=== PATIENT | female | born 1990 | race Hispanic/Latino ===

== ENCOUNTER 2016-12-09 23:55 | Emergency (ER) | payer MEDICAID ==
[2016-12-09 23:55] VITALS: BMI 46.2
[2016-12-10 00:20] VITALS: BP 126/42; PULSE 62; RESP 17; TEMP 98; O2SAT 98
[2016-12-10] MEDS ORDERED: Albuterol-Ipratrop 3 mg / 0.5 (3 ml) UD IH STA ×2 (00:33→00:34)
--- NOTE | 2016-12-10 00:36 | ED PDOC ---
HPI: CCC, URI, Sore Throat Time Seen by Provider: 12/10/16 00:25 Chief Complaint (Nursing): Flu-like Symptoms Chief Complaint (Provider): cough, congestion History Per: Patient History/Exam Limitations: no limitations Onset/Duration Of Symptoms: Days (2) Current Symptoms Are (Timing): Still Present Location Of Pain: Ear(s), Throat, Headache Associated Symptoms: Chills, Sore Throat, Cough, Sputum, Nasal Congestion Additional History Per: Patient Additional Complaint(s): 26 y/o female presents with congestion x 2 days. Associated productive cough ( green sputum), nasal congestion, dry throat, headache, ear fullness. Denies fever, nausea/vomiting, chest pain, shortness of breath, palpitations, abdominal pain, changes in bowel movements, recent travel, sick contacts. Past Medical History Reviewed: Historical Data, Nursing Documentation, Vital Signs Vital Signs: Last Vital Signs Temp 98.0 F 12/10/16 00:14 Pulse 62 12/10/16 00:14 Resp 17 12/10/16 00:14 BP 126/42 L 12/10/16 00:14 Pulse Ox 98 12/10/16 01:12 - Medical History PMH: Bronchitis, Gall Bladder Disease - Surgical History Surgical History: - Family History Family History: States: Unknown Family Hx - Social History Current smoker - smoking cessation education provided: Yes Alcohol: Occasional Drugs: Denies - Immunization History Hx Tetanus Toxoid Vaccination: No Hx Influenza Vaccination: No Hx Pneumococcal Vaccination: No - Home Medications Home Medications: Ambulatory Orders Medication Instructions Recorded Methadone HCl [Methadone HCl] 90 mg PO DAILY 09/28/14 Albuterol HFA [Ventolin HFA 90 1 - 2 puff IH Q4 PRN #1 inh 12/10/16 mcg/actuation (8 g)] Azithromycin [Zithromax] 250 mg PO DAILY #1 packet 12/10/16 Fluticasone Nasal [Flonase] 1 actuation NS BID #1 bottle 12/10/16 Prednisone 50 mg PO DAILY #4 tablet 12/10/16 - Allergies Allergies/Adverse Reactions: Allergies Allergy/AdvReac Type Severity Reaction Status Date / Time No Known Allergies Allergy Verified 01/09/15 09:07 Review of Systems ROS Statement: Except As Marked, All Systems Reviewed And Found Negative ENT: Positive for: Nose Congestion Respiratory: Positive for: Cough, Sputum Physical Exam - Reviewed Nursing Documentation Reviewed: Yes Vital Signs Reviewed: Yes - Physical Exam Appears: Positive for: Well, Non-toxic, No Acute Distress Head Exam: Positive for: ATRAUMATIC, NORMAL INSPECTION, NORMOCEPHALIC Skin: Positive for: Normal Color Eye Exam: Positive for: Normal appearance ENT: Positive for: Nasal Congestion Neck: Positive for: Normal, Painless ROM Cardiovascular/Chest: Positive for: Regular Rate, Rhythm Respiratory: Positive for: Wheezing (expiratory) Gastrointestinal/Abdominal: Positive for: Normal Exam Back: Positive for: Normal Inspection Extremity: Positive for: Normal ROM Neurologic/Psych: Positive for: Alert, Oriented - ECG O2 Sat by Pulse Oximetry: 98 - Radiology X-Ray: Viewed By Nd X-Ray Interpretation: No Acute Disease - Progress ED Course And Treament: chest xray, duonebs, prednisone PO Patient educated on findings, discharged with rx flonase, albuterol HFA, zpak, prednisone. Advised follow up PMD 2-3 days. Return to ED for worsening/concerning symptoms. Disposition - Clinical Impression Clinical Impression: Bronchitis - Patient ED Disposition Is Patient to be Admitted: No Counseled Patient/Family Regarding: Studies Performed, Diagnosis, Need For Followup, Rx Given, Smoking Cessation - Disposition Disposition: Routine/Home Disposition Time: 01:41 Condition: IMPROVED Prescriptions: Albuterol HFA [Ventolin HFA 90 mcg/actuation (8 g)] 1 - 2 puff IH Q4 PRN #1 inh PRN Reason: Wheezing Azithromycin [Zithromax] 250 mg PO DAILY #1 packet Fluticasone Nasal [Flonase] 1 actuation NS BID #1 bottle Prednisone 50 mg PO DAILY #4 tablet Instructions: Acute Bronchitis (ED)
--- NOTE | 2016-12-10 09:57 | RAD ---
HISTORY: cough, congestion COMPARISON: No prior. TECHNIQUE: Chest PA and lateral FINDINGS: LUNGS: No active pulmonary disease. PLEURA: No significant pleural effusion identified. No pneumothorax apparent. CARDIOVASCULAR: Normal. OSSEOUS STRUCTURES: No significant abnormalities. VISUALIZED UPPER ABDOMEN: Normal. OTHER FINDINGS: None. IMPRESSION: No active disease.
== END 2016-12-10 03:04 | disposition home or self-care (01) ==
LOC: H.ER 23:55
DX: J40 Bronchitis, not specified as acute or chronic (principal); F17.210 Nicotine dependence, cigarettes, uncomplicated